=== PATIENT | female | born 1965 | race African-American/Black ===

== ENCOUNTER 2017-07-12 05:35 | Emergency (ER) | payer MEDICARE, MEDICAID ==
[~2017-07-12] VITALS: Ht 170.2 cm; Wt 93.0 kg
[~2017-07-12 05:35] MED LIST: AMLO5TAB4; ERGO400C; FOLI0.4T2; KEPP250; NORT10CA; OXCA150T5
[2017-07-12] MEDS: TETRACAINE 0.5% OPHTH DROPS 4ML BOTHEYE ONE (07:44)
[2017-07-12] MEDS: FLUORESCEIN SODIUM 1MG/STRIP BOTHEYE ONE (07:44)
[2017-07-12] MEDS: KETOROLAC 60MG/2ML VIAL IM ONE (07:44)
[2017-07-12] MEDS: ONDANSETRON 4MG ODT PO ONE (07:44)
[2017-07-12 08:10] VITALS: BP 154/86
== END 2017-07-12 08:11 | disposition home or self-care (01) ==
LOC: ER 06:00
DX: H10.9 Unspecified conjunctivitis (principal); J30.2 Other seasonal allergic rhinitis; F17.200 Nicotine dependence, unspecified, uncomplicated
CPT/HCPCS: 96372; 99283; J1885; Q0162

== ENCOUNTER 2017-10-26 15:34 | Emergency (ER) | payer MEDICARE, MEDICAID ==
[~2017-10-26] VITALS: Ht 170.2 cm; Wt 93.0 kg
[2017-10-26] MEDS ORDERED: KETOROLAC 30MG/ML VIAL IV STA (18:24)
[2017-10-26] MEDS ORDERED: FAMOTIDINE 20MG TABLET PO STA (18:24)
[2017-10-26] MEDS ORDERED: ACETAMINOPHEN 500MG TABLET PO STA (18:24)
[2017-10-26] MEDS ORDERED: ONDANSETRON HCL 4MG/2ML VIAL IV ONE (18:30)
[2017-10-26 18:57] LABS: BASOPHILS % 0.8 % (0.0-2.0); EOSINOPHILS % 0.8 % (0.0-5.0); HEMATOCRIT. 36.7 % (36.0-48.0); HEMOGLOBIN. 12.3 g/dL (12.0-16.0); LYMPHOCYTES % 33.7 % (20.0-50.0); MEAN CORPUSCULAR HEMOGLOBIN 29.7 pg (28.0-32.0); MEAN CORPUSCULAR VOLUME 89.1 fL (81.0-99.0); MEAN PLATELET VOLUME 7.1 fl (7.4-10.4); MONOCYTES % 6.6 % (2.0-8.0); NEUTROPHILS % 58.1 % (40.0-76.0); PLATELET 329 x1000/uL (130-400); RED BLOOD CELL COUNT 4.12 mill/uL (4.2-5.4); RED CELL DISTRIBUTION WIDTH 13.4 % (11.6-14.6)
[2017-10-26 19:05] LABS: PARTIAL THROMBOPLASTIN TIME 29.1 sec (23.4-31.0); PROTHROMBIN TIME 10.7 sec (9.4-11.6)
[2017-10-26 19:45] VITALS: BP 164/64
[2017-10-26 19:49] LABS: CARBON DIOXIDE 29 mEq/L (21-32); CHLORIDE 106 mEq/L (98-107); TROPONIN I < 0.02 ng/mL (0.00-0.04)
== END 2017-10-26 20:25 | disposition home or self-care (01) ==
LOC: ER 15:34
DX: M75.91 Shoulder lesion, unspecified, right shoulder (principal); J06.9 Acute upper respiratory infection, unspecified; G40.909 Epilepsy, unspecified, not intractable, without status epilepticus
CPT/HCPCS: 36415; 71045; 73030; 80053; 81025; 83690; 84484; 85025; 85610; 85730; 93005; 96374; 96375; 99285; J1885; J2405

== ENCOUNTER 2017-12-16 10:37 | Emergency (ER) | payer MEDICARE, MEDICAID ==
[~2017-12-16] VITALS: Ht 162.6 cm; Wt 101.0 kg
[2017-12-16] MEDS ORDERED: ONDANSETRON HCL 4MG/2ML VIAL IV STA (14:23)
[2017-12-16] MEDS ORDERED: KETOROLAC 30MG/ML VIAL IV STA (14:23)
[2017-12-16] MEDS ORDERED: AZITHROMYCIN 500 MG TABLET PO ONE (15:30)
[2017-12-16] MEDS ORDERED: CEFTRIAXONE SODIUM 250 MG/VIAL IM ONE (15:30)
[2017-12-16 17:09] VITALS: BP 164/86
== END 2017-12-16 17:14 | disposition home or self-care (01) ==
LOC: ER 12:08
DX: N89.8 Other specified noninflammatory disorders of vagina (principal); M54.2 Cervicalgia; F12.10 Cannabis abuse, uncomplicated; R11.0 Nausea; R51 Headache
CPT/HCPCS: 81025; 87591; 96372; 96374; 96375; 99284; J0696; J1885; J2405

== ENCOUNTER 2022-04-07 11:38 | Emergency (ER) | payer MEDICAID, MEDICARE ==
[~2022-04-07] VITALS: Ht 165.1 cm; Wt 125.0 kg
[~2022-04-07 11:38] MED LIST changes: -FOLI0.4T2; +FOLI0.4T6
[2022-04-07] MEDS ORDERED: KETOROLAC 30MG/ML VIAL IV ONE (12:45)
[2022-04-07] MEDS ORDERED: HYDRALAZINE 20MG/ML VIAL IV ONE (12:45)
[2022-04-07 12:54] LABS: BASOPHILS % 0.9 % (0.0-2.0); EOSINOPHILS % 0.9 % (0.0-5.0); HEMATOCRIT. 38.1 % (36.0-48.0); HEMOGLOBIN. 12.7 g/dL (12.0-16.0); LYMPHOCYTES % 27.7 % (20.0-50.0); MEAN CORPUSCULAR HEMOGLOBIN 30.3 pg (28.0-32.0); MEAN CORPUSCULAR VOLUME 90.5 fL (81.0-99.0); MEAN PLATELET VOLUME 7.5 fl (7.4-10.4); MONOCYTES % 6.8 % (2.0-8.0); NEUTROPHILS % 63.7 % (40.0-76.0); PLATELET 321 x1000/uL (130-400); RED CELL DISTRIBUTION WIDTH 13.4 % (11.6-14.6)
[2022-04-07 12:55] LABS: CHLORIDE 107 mEq/L (98-107)
[2022-04-07 12:57] LABS: PROTHROMBIN TIME 10.8 sec (9.6-11.0)
[2022-04-07 13:07] LABS: ETHANOL BLOOD < 10 mg/dL
[2022-04-07] MEDS ORDERED: FAMO40TA70 MT (14:55)
[2022-04-07 15:20] VITALS: BP 161/66
== END 2022-04-07 16:27 | disposition home or self-care (01) ==
LOC: ER 12:41
DX: R07.89 Other chest pain (principal); I10 Essential (primary) hypertension; K21.9 Gastro-esophageal reflux disease without esophagitis; G40.909 Epilepsy, unspecified, not intractable, without status epilepticus; F12.10 Cannabis abuse, uncomplicated; Z20.822 Contact with and (suspected) exposure to COVID-19; Z98.890 Other specified postprocedural states
CPT/HCPCS: 36415; 71045; 80053; 80320; 83690; 83880; 84484; 85025; 85610; 87426; 93005; 96374; 96375; 99285; C9803; J0360; J1885; G0480